=== PATIENT | female | born 1960 | race Two or more races ===

== ENCOUNTER → 2024-02-13 | Outpatient (CLI) | payer MEDICARE, MEDICAID, SELFPAY ==
[2024-02-13 13:50] LABS: Basophils % (Auto) 0 % (0-2.5); Eosinophils # (Auto) 0.2 Thou/mm3 (0.0-0.5); Eosinophils % (Auto) 4 % (0-10); Hematocrit 33.3 % (36.0-46.0); Hemoglobin 10.4 g/dL (12.0-16.0); Immature Granulocytes % (Auto) 1 % (0-0); Immature Granulocytes Auto 0.06 Thou/mm3 (0.00-0.00); Lymphocytes # (Auto) 1.2 Thou/mm3 (1.0-4.8); Lymphocytes % (Auto) 25 % (10-50); Mean Corpuscular HGB Conc 31.2 g/dl (31.0-37.0); Mean Corpuscular Hemoglobin 26.8 pg (25.0-35.0); Mean Corpuscular Volume 86 fL (80-100); Monocytes # (Auto) 0.3 Thou/mm3 (0.0-0.8); Monocytes % (Auto) 5 % (0-12); Neutrophils % (Auto) 64 % (37-80); Nucleated Red Blood Cell % 0 /100 WBC (0); Platelet Count 226 Thou/mm3 (140-440); RDW Standard Deviation 46.6 fL (36.4-46.3); Red Blood Count 3.88 Miln/mm3 (4.00-5.20); White Blood Count 4.6 Thou/mm3 (3.6-11.0)
[2024-02-13 14:01] LABS: Alanine Aminotransferase 14 U/L (10-49); Albumin, Serum 3.9 gm/dL (3.4-4.8); Albumin/Globulin Ratio 1.5 (1.2-2.2); Alkaline Phosphatase 104 U/L (46-116); Anion Gap 7 (7-16); Aspartate Amino Transferase < 10 U/L (0-34); BUN/Creatinine Ratio 16 Ratio (12-20); Bilirubin,Total 0.2 mg/dL (0.3-1.2); Blood Urea Nitrogen 30 mg/dL (9-23); Calcium 8.7 mg/dL (8.3-10.6); Calcium (Corrected) 8.8 mg/dL (8.5-10.1); Carbon Dioxide 23.2 mMol/L (20.0-31.0); Chloride 109 mMol/L (98-107); Creatinine (Component) 1.9 mg/dL (0.6-1.3); Globulin 2.6 gm/dL (2.3-3.5); Glucose 121 mg/dL (74-106); Osmolality,Calculated 284 (275-295); Potassium 4.8 mMol/L (3.4-5.1); Sodium 139 mMol/L (136-145); Total Protein 6.5 gm/dL (5.7-8.2); eGFR 30 See Note
== END | disposition home or self-care (01) ==
LOC: SCTO 12:35
PROVIDERS: PCP Internal Medicine; Referring Provider Internal Medicine Hematology & Oncology; Visit Provider Internal Medicine Hematology & Oncology
DX: C64.1 Malignant neoplasm of right kidney, except renal pelvis (principal); C78.01 Secondary malignant neoplasm of right lung
CPT/HCPCS: 36415; 80053; 85025

== ENCOUNTER 2024-02-15 11:16 | Outpatient (RCR) | payer MEDICARE, MEDICAID, SELFPAY ==
--- NOTE | 2024-02-18 22:14 | CTCFLWUP_ITS ---
Patient: GRICELDA MARQUES : 1960 Page 2 of 9 FOLLOW UP NOTE DATE OF SERVICE: 02/15/2024 NAME: GRICELDA MARQUES ACCOUNT: [id number] : 1960 AGE: 63 INTERVAL HISTORY: Patient has mild headaches. Patient says headache is present all the time and do not have any aggrav ating factors. Her mild nausea. Have not lost any weight. ONCOLOGY HISTORY: DIAGNOSIS: Malignant neoplasm of right kidney, except renal pelvis [ICD10] C64.1; Secondary malignant neoplasm o f right lung [ICD10] C78.01 DATE OF DIAGNOSIS: 09/13/2018 STAGE/TNM: Stage IV TREATMENT HISTORY: Care?Plan Start?Date Cycle Day Intent KEYTRUDA?200 01/21/2020 1 21 Palliative HISTORY OF PRESENT ILLNESS: Gricelda Marques is a 63-year-old ENG speaking female with history of diabetes since 1995, periph eral neuropathy as well as fibromyalgia has the following oncology history. July 2015: Patient had right radical nephrectomy, robotic inferior vena cava colectomy and right-side d retroperitoneal lymph node dissection. Pathology showed grade 2, clear cell renal cell carcinoma m easuring 7.5 x 5 x 4 cm in size. Margins were uninvolved by invasive carcinoma. Lymphovascular inva piper was not identified. It was staged as a pT3 disease. No regional lymph nodes were submitted in the pathology specimen. Renal artery, vein, ureter, perinephric resection margins and vena caval res ection margins are free of tumor. 09/13/2018: CT scan of the chest with IV contrast did not show any mediastinal adenopathy or pulmonary parenchymal nodules. 03/13/2019: CT scan of the chest, abdomen and pelvis with IV contrast? 05/15/2019: CT-guided biopsy of the right lower lobe pulmonary nodule was performed. 07/03/2019: Repeat CT scan of the chest without contrast was performed. 07/03/2019: Patient had repeat CT-guided percutaneous biopsy of the right lower lobe pulmonary nodule. July 2019: Patient was started on Sutent by Dr. Aaron of [place]. 09/03/2019: PET CT scan? 09/05/2019: Echocardiogram?LVEF 60 to 65%. 10/09/2019: CT scan of the abdomen and pelvis with contrast compared to previous CT scan of the abdomen and pelvis done on 03/27/2018. 12/21/2019: PET CT scan? 12/31/2019: Sutent discontinued. 01/21/2020: Patient is started on Keytruda and axitinib. 02/10/2020?02/23/2020: Patient was admitted to [facility] in [place] for a perianal abscess which was surgically lanced. Ms. Marques took the last dose of axitinib on 02/09/2020. 04/18/2020: PET CT scan? 05/13/2020: Patient received second dose of Keytruda and restarted axitinib 5 mg p.o. twice daily. 09/25/2020: PET CT scan? 06/16/2021: CT scan of the chest abdomen and pelvis with IV contrast 06/17/2021: Patient received last dose of pembrolizumab. 07/22/2021: Ms. Marques was getting pembrolizumab as well as axitinib. Pembrolizumab discontinued due to diarrhea lasting for about 2 weeks. After discontinuing the pembrolizumab diarrhea resolved. Catalina rrhea was thought to be secondary to colitis caused by pembrolizumab. 11/15/2021: CT scan of the chest abdomen and pelvis with IV contrast? November 20, 2021: Ms. Marques discontinued axitinib due to persistent diarrhea. Her diarrhea has impr marija since then. 12/14/2021: Pembrolizumab restarted. 03/17/2022: CT scan of the chest abdomen and pelvis with IV contrast? 09/13/2022: CT scan of the chest abdomen and pelvis with IV contrast 01/23/2023: CT scan of the chest abdomen and pelvis with IV contrast 02/09/2023: The patient received last dose of pembrolizumab. Pembrolizumab was discontinued and Ms. Sonja duncan was started on cabozantinib. 04/04/2023: CT scan of the chest abdomen and pelvis with IV contrast 05/16/2023 cabozantinib was decreased from 60 mg p.o. daily to 40 mg p.o. 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 06/22/2023: Cabozantinib 40 mg p.o. daily stopped due to stomatitis as well as ulcers in the feet. 07/18/2023T scan of the chest abdomen pelvis with contrast 08/26/2023: Ms. Marques decided to discontinue cabozantinib due to ulcers in the feet. She was taking cabozantinib 40 mg p.o. daily for 2 weeks followed by 1 week rest which she decided not to continue a ny longer. 10/13/2023: MRI of the brain without IV contrast 11/02/2023: CT scan of the chest abdomen and pelvis with IV contrast? 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 allopurinol - 100 mg Daily 2. atorvastatin - 20 mg 1 tab Daily 3. Basaglar KwikPen - Twice a Day 4. cabozantinib - 40 mg 1 tab Daily 5. carvedilol - 12.5 mg 1 tab Twice a Day 6. Cymbalta - 60 mg Daily 7. Farxiga - 5 mg 1 tab Daily 8. Lyrica - 100 mg Three times a day 9. Novolog - 10. Ozempic - 0.25 mg or 0.5 mg(2 mg/1.5 mL) As directed 11. Zofran - 4 mg 1 tab 2 tabs po twice a day prn nausea Medications Last Reconciled by Elizabeth Mcnulty MA on 02/15/2024 ALLERGIES: hydrocodone-acetaminophen; codeine sulfate REVIEW OF SYSTEMS: A complete 14-point review of systems was performed and is negative except as noted in interval histo ry. PHYSICAL EXAMINATION: VITAL SIGNS: Temperature?98, B/P?135/73, Oxygen?Saturation?97% Weight?252?lbs PAIN: 0 - No pain ECOG Performance Status: None GENERAL APPEARANCE: Appears well, in no apparent distress, appropriately interactive. HEENT: Normocephalic, no temporal wasting, normal conjunctiva, no scleral icterus, normal hearing, li ps without lesions, neck normal range of motion. CARDIOVASCULAR: Not assessed. PULMONARY: Normal respiratory effort, no respiratory distress or use of accessory muscles, speaking i n full sentences, no tachypnea. EXTREMITIES: No pedal edema or cyanosis. SKIN: Normal skin appearance. NEUROLOGIC: Alert and oriented x4. PSHYCHIATRIC: Appropriate affect, mood normal, behavior normal, intact thought and speech. LABORATORY DATA: I have personally reviewed and interpreted each of the patient?s relevant lab tests, abnormal finding s are below: Date 02/13/24 ??GLUCOSE,RANDOM?(mg/dL) 121?H ??BLOOD?UREA?NITROGEN?(mg/dL) 30?H ??CREATININE?(mg/dL) 1.90?H ??SODIUM?(mmol/L) 139 ??POTASSIUM?(mmol/L) 4.8 ??CHLORIDE?(mmol/L) 109?H ??CrCl?(CandG)?(ml/min) 38.47 ??AST/SGOT?(Unit/L) <?10 ??ALT/SGPT?(Unit/L) 14 ??ALKALINE?PHOSPHATASE?(Unit/L) 104 ??BILIRUBIN,?TOTAL?(mg/dL) 0.2?L ??PROTEIN?TOTAL?(gm/dl) 6.5 ??ALBUMIN,?SERUM?(gm/dl) 3.9 ??GLOBULIN?(gm/dl) 2.6 ??ALBUMIN/GLOBULIN?RATIO 1.5 ??CALCIUM,?SERUM?(mg/dL) 8.7 ??CALCIUM?SERUM?(CORRECTED)?(mg/dL) 8.8 ASSESSMENT/PLAN: 1. Metastatic clear cell carcinoma of the right kidney with biopsy-proven pulmonary metastatic diseas e. Progressed on Sutent and Keytruda CT scan of the chest abdomen and pelvis IV contrast (11/02/2023) is negative for metastatic disease. Cabozantinib discontinued on 09/03/2023 due to ulcers in the feet. Persistent headaches of 3 to [address] scan of the chest abdomen and was did not show any pulmonary lesions admitted as an adenopath y. It showed stable left para-aortic 23 mm lymph node. Will get staging imaging as well as MRI of the brain and start treatment if any evidence of recurrenc e 2. Diabetes with peripheral neuropathy as well as fibromyalgia-followed by PCP. ORDERS: CT scan chest abdomen pelvis with contrast to evaluate for metastatic disease MRI brain with contrast to evaluate metastatic disease CBC CMP RETURN TO CLINIC: 4 weeks BILLING AND COMPLIANCE: I reviewed external records from providers outside my specialty as summarized above. I spent a total of 50 minutes on this patient?s care on the day of their visit excluding time spent related to any bi lled procedures. This time includes time spent with the patient as well as time spent documenting in the medical record, reviewing patients records and tests, obtaining history, placing orders, communi cating with other healthcare professionals, counseling the patient, family or caregiver, and/or care coordination for the diagnoses above. Electronically Signed by: {Object.Sanct_ID*[email or web address]@M}, {Object.Sanct_ID*PnP.Suffix@U} D: {Object.Sanct_Date} T: {Object.Sanct_Time} CC: PCP: Anyi Lynch Referring: Anyi Lynch This document was completed utilizing speech recognition software. Grammatical errors, random word in sertions, pronoun errors, and incomplete sentences are an occasional consequence of this system due t o software limitations, ambient noise, and hardware issues. Any formal questions or concerns about th e content, text or information contained within the body of this dictation should be directly address ed to the provider for clarification.
== END 2024-03-08 23:59 | disposition home or self-care (01) ==
LOC: SCTC 11:16
PROVIDERS: PCP Internal Medicine; Referring Provider Internal Medicine; Visit Provider Internal Medicine Hematology & Oncology
DX: C64.1 Malignant neoplasm of right kidney, except renal pelvis (principal); C78.01 Secondary malignant neoplasm of right lung; R51.9 Headache, unspecified; R11.0 Nausea; E11.42 Type 2 diabetes mellitus with diabetic polyneuropathy; Z79.84 Long term (current) use of oral hypoglycemic drugs; Z79.4 Long term (current) use of insulin
CPT/HCPCS: 99212; G0463

== ENCOUNTER → 2024-03-27 | Outpatient (CLI) | payer MEDICARE, SELFPAY ==
[2024-03-27 13:54] LABS: Basophils % (Auto) 0 % (0-2.5); Eosinophils # (Auto) 0.2 Thou/mm3 (0.0-0.5); Eosinophils % (Auto) 2 % (0-10); Immature Granulocytes % (Auto) 1 % (0-0); Immature Granulocytes Auto 0.05 Thou/mm3 (0.00-0.00); Lymphocytes # (Auto) 1.6 Thou/mm3 (1.0-4.8); Lymphocytes % (Auto) 20 % (10-50); Mean Corpuscular HGB Conc 30.8 g/dl (31.0-37.0); Mean Corpuscular Hemoglobin 25.6 pg (25.0-35.0); Mean Corpuscular Volume 83 fL (80-100); Monocytes # (Auto) 0.6 Thou/mm3 (0.0-0.8); Monocytes % (Auto) 7 % (0-12); Neutrophils # (Auto) 5.5 Thou/mm3 (1.8-7.7); Neutrophils % (Auto) 69 % (37-80); Nucleated Red Blood Cell % 0 /100 WBC (0); Platelet Count 266 Thou/mm3 (140-440); Red Blood Count 4.68 Miln/mm3 (4.00-5.20)
[2024-03-27 14:40] LABS: Alanine Aminotransferase 14 U/L (10-49); Albumin/Globulin Ratio 1.3 (1.2-2.2); Alkaline Phosphatase 117 U/L (46-116); Anion Gap 11 (7-16); Aspartate Amino Transferase 13 U/L (0-34); BUN/Creatinine Ratio 12 Ratio (12-20); Bilirubin,Total 0.3 mg/dL (0.3-1.2); Blood Urea Nitrogen 21 mg/dL (9-23); Calcium 9.5 mg/dL (8.3-10.6); Calcium (Corrected) 9.5 mg/dL (8.5-10.1); Carbon Dioxide 20.9 mMol/L (20.0-31.0); Chloride 103 mMol/L (98-107); Creatinine (Component) 1.8 mg/dL (0.6-1.3); Globulin 3.1 gm/dL (2.3-3.5); Osmolality,Calculated 293 (275-295); Sodium 135 mMol/L (136-145); Total Protein 7.1 gm/dL (5.7-8.2); eGFR 32 See Note
[2024-03-27 15:17] LABS: Glucose 457 mg/dL (74-106)
== END | disposition home or self-care (01) ==
LOC: COPL 12:14 → SCTO 12:17
PROVIDERS: Referring Provider Internal Medicine Hematology & Oncology; Visit Provider Internal Medicine Hematology & Oncology
DX: C64.1 Malignant neoplasm of right kidney, except renal pelvis (principal); C78.01 Secondary malignant neoplasm of right lung
CPT/HCPCS: 36415; 80053; 85025

== ENCOUNTER → 2024-04-09 | Outpatient (CLI) | payer MEDICARE, MEDICAID, SELFPAY ==
--- NOTE | 2024-04-09 12:00 | XR_ITS ---
Examination: MRI brain with intravenous contrast TECHNIQUE: Axial sagittal coronal brain MRI images post intravenous administration 5 cc gadolinium INDICATIONS: Diagnosis headaches numbness in the extremities dizziness daily months, diagnosis malignant neoplasm kidney Exam date and time: 2024 1230 hours FINDINGS: Ventricles are normal in size and configuration No mass effect upon the ventricular system 6 mm focal area of enhancement in the right parietal lobe axial image 16 Fourth ventricle midline No tonsillar herniation IMPRESSION: Suspicious for subtle 6 mm focal area of enhancement in the right parietal lobe, recommend 3 month follow-up brain MRI post contrast
== END | disposition home or self-care (01) ==
PROVIDERS: PCP Internal Medicine; Referring Provider Internal Medicine Hematology & Oncology; Visit Provider Internal Medicine Hematology & Oncology
DX: G93.9 Disorder of brain, unspecified (principal); C64.1 Malignant neoplasm of right kidney, except renal pelvis; C78.01 Secondary malignant neoplasm of right lung
CPT/HCPCS: 70552; A9579

== ENCOUNTER → 2024-04-17 | Outpatient (CLI) | payer MEDICARE, MEDICAID, SELFPAY ==
--- NOTE | 2024-04-17 11:00 | XR_ITS ---
Examination: CT chest with intravenous contrast CT abdomen with intravenous contrast CT pelvis with intravenous contrast 2-D coronal and sagittal reconstructions Time of exam: April 17, 2024 1129 hrs. Comparison 11/02/2023 Indications: Diagnosis malignant neoplasm right kidney except renal pelvis, right kidney Carcinoma 2019 CTDI: vol (mGy) : 16.4 DLP: (mGycm): 1303 Technique: Multiple axial images of the chest, abdomen and pelvis with intravenous contrast, 3.0 mm slice thickness. Images obtained post intravenous injection Isovue 30 cc Isovue-300 2-D sagittal and coronal reconstructions. Low dose protocols were performed. One or more of the following dose reduction techniques were used; automated exposure control, adjustment of the mA and/or KV according to patient size, use of iterative reconstruction technique. Findings: Thoracic aortic calcification millimeters dilatation No pulmonary artery filling defects No paratracheal tracheobronchial or bronchopulmonary adenopathy 3 mm pulmonary nodule right Image 155 2 mm pulmonary nodule right lower lobe image 164 2 mm pulmonary nodule lingular segment image 184 6 mm pulmonary nodule left lower lobe image 264 Localized weakening of the upper abdominal wall Hepatomegaly, no focal liver lesions No adrenal mass Absent right kidney Significant scarring left kidney, mild left hydronephrosis, no solid left renal mass lesion No abdominal or pelvic lymphadenopathy No bowel obstruction No pelvic mass Contracted urinary bladder Moderate osteopenia Impression: Interval subcentimeter pulmonary nodules compared to the CT chest 11/02/2023, recommend decubitus film follow-up CT chest without intravenous contrast follow-up Suspicious for left urinary tract infection
== END | disposition home or self-care (01) ==
PROVIDERS: Referring Provider Internal Medicine Hematology & Oncology; Visit Provider Internal Medicine Hematology & Oncology
DX: R91.8 Other nonspecific abnormal finding of lung field (principal); C64.1 Malignant neoplasm of right kidney, except renal pelvis; C78.01 Secondary malignant neoplasm of right lung
CPT/HCPCS: 71260; 74177; A4649; Q9967

== ENCOUNTER 2024-04-18 10:44 | Outpatient (RCR) | payer MEDICARE, MEDICAID, SELFPAY ==
[2024-04-09 11:24] LABS: Alanine Aminotransferase 13 U/L (10-49); Albumin, Serum 3.7 gm/dL (3.4-4.8); Albumin/Globulin Ratio 1.4 (1.2-2.2); Alkaline Phosphatase 99 U/L (46-116); Anion Gap 6 (7-16); Aspartate Amino Transferase 12 U/L (0-34); BUN/Creatinine Ratio 16 Ratio (12-20); Bilirubin,Total 0.2 mg/dL (0.3-1.2); Blood Urea Nitrogen 25 mg/dL (9-23); Calcium 8.7 mg/dL (8.3-10.6); Calcium (Corrected) 8.9 mg/dL (8.5-10.1); Carbon Dioxide 26.3 mMol/L (20.0-31.0); Chloride 109 mMol/L (98-107); Creatinine (Component) 1.6 mg/dL (0.6-1.3); Globulin 2.7 gm/dL (2.3-3.5); Glucose 88 mg/dL (74-106); Osmolality,Calculated 284 (275-295); Potassium 5.1 mMol/L (3.4-5.1); Sodium 141 mMol/L (136-145); Total Protein 6.4 gm/dL (5.7-8.2); eGFR 36 See Note
--- NOTE | 2024-05-12 17:59 | CTCFLWUP_ITS ---
Patient: GRICELDA MARQUES : 1960 Page 10 of 12 FOLLOW UP NOTE DATE OF SERVICE: 04/18/2024 NAME: GRICELDA MARQUES ACCOUNT: [id number] : 1960 AGE: 63 INTERVAL HISTORY: Patient has mild headaches. Patient says headache is present all the time and do not have any aggravating factors. Her mild nausea. Have not lost any weight. ONCOLOGY HISTORY:?[facility] Oncology Hx? DIAGNOSIS: Malignant neoplasm of right kidney, except renal pelvis [ICD10] C64.1; Secondary malignant neoplasm of right lung [ICD10] C78.01 DATE OF DIAGNOSIS: 09/13/2018 STAGE/TNM: Stage IV TREATMENT HISTORY: Care?Plan Start?Date Cycle Day Intent KEYTRUDA?200 01/21/2020 1 21 Palliative HISTORY OF PRESENT ILLNESS: Gricelda Marques is a 63-year-old ENG speaking female with history of diabetes since 1995, peripheral neuropathy as well as fibromyalgia has the following oncology history. July 2015: Patient had right radical nephrectomy, robotic inferior vena cava colectomy and right-sided retroperitoneal lymph node dissection. Pathology showed grade 2, clear cell renal cell carcinoma measuring 7.5 x 5 x 4 cm in size. Margins were uninvolved by invasive carcinoma. Lymphovascular invasion was not identified. It was staged as a pT3 disease. No regional lymph nodes were submitted in the pathology specimen. Renal artery, vein, ureter, perinephric resection margins and vena caval resection margins are free of tumor. 09/13/2018: CT scan of the chest with IV contrast did not show any mediastinal adenopathy or pulmonary parenchymal nodules. 03/13/2019: CT scan of the chest, abdomen and pelvis with IV contrast? 05/15/2019: CT-guided biopsy of the right lower lobe pulmonary nodule was performed. 07/03/2019: Repeat CT scan of the chest without contrast was performed. 07/03/2019: Patient had repeat CT-guided percutaneous biopsy of the right lower lobe pulmonary nodule. July 2019: Patient was started on Sutent by Dr. Aaron of [place]. 09/03/2019: PET CT scan? 09/05/2019: Echocardiogram?LVEF 60 to 65%. 10/09/2019: CT scan of the abdomen and pelvis with contrast compared to previous CT scan of the abdomen and pelvis done on 03/27/2018. 12/21/2019: PET CT scan? 12/31/2019: Sutent discontinued. 01/21/2020: Patient is started on Keytruda and axitinib. 02/10/2020?02/23/2020: Patient was admitted to [facility] in [place] for a perianal abscess which was surgically lanced. Ms. Marques took the last dose of axitinib on 02/09/2020. 04/18/2020: PET CT scan? 05/13/2020: Patient received second dose of Keytruda and restarted axitinib 5 mg p.o. twice daily. 09/25/2020: PET CT scan? 06/16/2021: CT scan of the chest abdomen and pelvis with IV contrast 06/17/2021: Patient received last dose of pembrolizumab. 07/22/2021: Ms. Marques was getting pembrolizumab as well as axitinib. Pembrolizumab discontinued due to diarrhea lasting for about 2 weeks. After discontinuing the pembrolizumab diarrhea resolved. Diarrhea was thought to be secondary to colitis caused by pembrolizumab. 11/15/2021: CT scan of the chest abdomen and pelvis with IV contrast? November 20, 2021: Ms. Marques discontinued axitinib due to persistent diarrhea. Her diarrhea has improved since then. 12/14/2021: Pembrolizumab restarted. 03/17/2022: CT scan of the chest abdomen and pelvis with IV contrast? 09/13/2022: CT scan of the chest abdomen and pelvis with IV contrast 01/23/2023: CT scan of the chest abdomen and pelvis with IV contrast 02/09/2023: The patient received last dose of pembrolizumab. Pembrolizumab was discontinued and Ms. Marques was started on cabozantinib. 04/04/2023: CT scan of the chest abdomen and pelvis with IV contrast 05/16/2023 cabozantinib was decreased from 60 mg p.o. daily to 40 mg p.o. daily due to hypotension, cracking of the skin of the hands and feet as well as sores in the mouth. 06/22/2023: Cabozantinib 40 mg p.o. daily stopped due to stomatitis as well as ulcers in the feet. 07/18/2023T scan of the chest abdomen pelvis with contrast 08/26/2023: Ms. Marques decided to discontinue cabozantinib due to ulcers in the feet. She was taking cabozantinib 40 mg p.o. daily for 2 weeks followed by 1 week rest which she decided not to continue any longer. 10/13/2023: MRI of the brain without IV contrast 11/02/2023: CT scan of the chest abdomen and pelvis with IV contrast? OTHER MEDICAL HISTORY/CONDITIONS: FAMILY HISTORY: ?Clone Family Hx? 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 allopurinol - 100 mg Daily 2. atorvastatin - 20 mg 1 tab Daily 3. Basaglar KwikPen - Twice a Day 4. cabozantinib - 40 mg 1 tab Daily 5. carvedilol - 12.5 mg 1 tab Twice a Day 6. Cymbalta - 60 mg Daily 7. Farxiga - 5 mg 1 tab Daily 8. Lyrica - 100 mg Three times a day 9. Novolog - 10. Ozempic - 0.25 mg or 0.5 mg(2 mg/1.5 mL) As directed 11. Zofran - 4 mg 1 tab 2 tabs po twice a day prn nausea?Palabra Meds? Medications Last Reconciled by Johanna Nazario RN on 04/18/2024 ALLERGIES: hydrocodone-acetaminophen; codeine sulfate REVIEW OF SYSTEMS: A complete 14-point review of systems was performed and is negative except as noted in interval history. PHYSICAL EXAMINATION:?CloneBlock PE? VITAL SIGNS: Temperature?97.5, B/P?117/64, Oxygen?Saturation?95% Weight?262?lbs (Change?since?04/17/24:?3.8?lbs) PAIN: 4 - Moderate pain GENERAL APPEARANCE: Appears well, in no apparent distress, appropriately interactive. HEENT: Normocephalic, no temporal wasting, normal conjunctiva, no scleral icterus, normal hearing, lips without lesions, neck normal range of motion. CARDIOVASCULAR: Not assessed. PULMONARY: Normal respiratory effort, no respiratory distress or use of accessory muscles, speaking in full sentences, no tachypnea. EXTREMITIES: No pedal edema or cyanosis. SKIN: Normal skin appearance. NEUROLOGIC: Alert and oriented x4. PSHYCHIATRIC: Appropriate affect, mood normal, behavior normal, intact thought and speech. LABORATORY DATA: I have personally reviewed and interpreted each of the patient?s relevant lab tests, abnormal findings are below: Date 02/13/24 03/27/24 04/09/24 ??WHITE?BLOOD?COUNT?(Thou/mm3) 4.6 8.0 ? ??RED?BLOOD?COUNT?(Miln/mm3) 3.88?L 4.68 ? ??HEMOGLOBIN?(gm/dl) 10.4?L 12.0 ? ??HEMATOCRIT?(%) 33.3?L 39.0 ? ??PLATELET?COUNT?(Thou/mm3) 226 266 ? ??NEUTROPHILS?%,?AUTO?(%) 64 69 ? ??LYMPH?%,?AUTO?(%) 25 20 ? ??NEUTROPHILS,?AUTO?(Thou/mm3) 3.0 5.5 ? ??GLUCOSE,RANDOM?(mg/dL) ? 457?HH 88 ??BLOOD?UREA?NITROGEN?(mg/dL) ? 21 25?H ??CREATININE?(mg/dL) ? 1.80?H 1.60?H ??SODIUM?(mmol/L) ? 135?L 141 ??POTASSIUM?(mmol/L) ? 5.0 5.1 ??CHLORIDE?(mmol/L) ? 103 109?H ??CrCl?(CandG)?(ml/min) ? 40.51 45.70 ??AST/SGOT?(Unit/L) ? 13 12 ??ALT/SGPT?(Unit/L) ? 14 13 ??ALKALINE?PHOSPHATASE?(Unit/L) ? 117?H 99 ??BILIRUBIN,?TOTAL?(mg/dL) ? 0.3 0.2?L ??PROTEIN?TOTAL?(gm/dl) ? 7.1 6.4 ??ALBUMIN,?SERUM?(gm/dl) ? 4.0 3.7 ??GLOBULIN?(gm/dl) ? 3.1 2.7 ??ALBUMIN/GLOBULIN?RATIO ? 1.3 1.4 ??CALCIUM,?SERUM?(mg/dL) ? 9.5 8.7 ??CALCIUM?SERUM?(CORRECTED)?(mg/dL) ? 9.5 8.9 ASSESSMENT/PLAN:?Ivanna Main Assessment/Plan? 1. Metastatic clear cell carcinoma of the right kidney with biopsy-proven pulmonary metastatic disease. Progressed on Sutent and Keytruda CT scan of the chest abdomen and pelvis IV contrast (11/02/2023) is negative for metastatic disease. Cabozantinib discontinued on 09/03/2023 due to ulcers in the feet. Persistent headaches of 3 to [address] scan of the chest abdomen and was did not show any pulmonary lesions admitted as an adenopathy. It showed stable left para-aortic 23 mm lymph node. 04/09/2024 MRI of the brain reviewed and shows 6 mm provide have not suspicious and recommendation is to follow-up with repeat MRI in [address] scan reviewed and shows subcentimeter pulmonary nodules compared to CT chest 11/02/2023 and recommendation is to follow-up with another CT chest Discussed with the patient and will repeat brain MRI Will also order CT scan Will go for [place] testing to see if any residual tumor The patient have labs of cancer we will restart treatment with the Nivo and ipi 2. Diabetes with peripheral neuropathy as well as fibromyalgia-followed by PCP. ORDERS: Order # Description [id number] MRI + With W/O Contrast + Brain [id number] CT Scan + With W/O Contrast [id number] MD Follow Up [id number] Scan + Chest + With Contrast RETURN TO CLINIC: 2 months with imaging BILLING AND COMPLIANCE: I reviewed external records from providers outside my specialty as summarized above. I spent a total of 50 minutes on this patient?s care on the day of their visit excluding time spent related to any billed procedures. This time includes time spent with the patient as well as time spent documenting in the medical record, reviewing patients records and tests, obtaining history, placing orders, communicating with other healthcare professionals, counseling the patient, family or caregiver, and/or care coordination for the diagnoses above. Electronically Signed by: Bret Main MD T: 5:56 PM CC: PCP: Bret Main Referring: Bret Main This document was completed utilizing speech recognition software. Grammatical errors, random word insertions, pronoun errors, and incomplete sentences are an occasional consequence of this system due to software limitations, ambient noise, and hardware issues. Any formal questions or concerns about the content, text or information contained within the body of this dictation should be directly addressed to the provider for clarification.
== END 2024-05-06 23:59 | disposition home or self-care (01) ==
LOC: SCTC 10:44
PROVIDERS: PCP Internal Medicine; Referring Provider Internal Medicine Hematology & Oncology; Visit Provider Internal Medicine Hematology & Oncology
DX: C64.1 Malignant neoplasm of right kidney, except renal pelvis (principal); C78.01 Secondary malignant neoplasm of right lung; R51.9 Headache, unspecified; R11.0 Nausea; E11.42 Type 2 diabetes mellitus with diabetic polyneuropathy; M79.7 Fibromyalgia; R91.8 Other nonspecific abnormal finding of lung field
CPT/HCPCS: 70552; 71260; 74177; 80053; 96360; 96361; 99212; A4649; A9579; J7030; Q9967; G0463

== ENCOUNTER → 2024-05-14 | Outpatient (CLI) | payer MEDICARE, MEDICAID, SELFPAY ==
[2024-05-14 13:51] LABS: Alanine Aminotransferase 15 U/L (10-49); Albumin, Serum 4.3 gm/dL (3.4-4.8); Albumin/Globulin Ratio 1.3 (1.2-2.2); Alkaline Phosphatase 134 U/L (46-116); Anion Gap 8 (7-16); Aspartate Amino Transferase 13 U/L (0-34); BUN/Creatinine Ratio 15 Ratio (12-20); Bilirubin,Total 0.3 mg/dL (0.3-1.2); Blood Urea Nitrogen 29 mg/dL (9-23); Calcium 9.5 mg/dL (8.3-10.6); Calcium (Corrected) 9.5 mg/dL (8.5-10.1); Chloride 107 mMol/L (98-107); Globulin 3.2 gm/dL (2.3-3.5); Glucose 136 mg/dL (74-106); Osmolality,Calculated 285 (275-295); Potassium 5.4 mMol/L (3.4-5.1); Sodium 139 mMol/L (136-145); Total Protein 7.5 gm/dL (5.7-8.2); eGFR 28 See Note
== END | disposition home or self-care (01) ==
LOC: SCTO 12:23
PROVIDERS: PCP Internal Medicine; Referring Provider Internal Medicine Hematology & Oncology; Visit Provider Internal Medicine Hematology & Oncology
DX: C64.1 Malignant neoplasm of right kidney, except renal pelvis (principal); C78.01 Secondary malignant neoplasm of right lung
CPT/HCPCS: 36415; 80053

== ENCOUNTER → 2024-05-16 | Outpatient (CLI) | payer MEDICARE, MEDICAID, SELFPAY ==
--- NOTE | 2024-05-16 08:30 | XR_ITS ---
Examination: MRI of brain without intravenous contrast. MRI brain with intravenous contrast. Date and time of exam:May 17, 2019 5039 hrs. Comparison April 09, 2024 Indications: Diagnosis malignant neoplasm right kidney Renal pelvis, secondary malignant neoplasm right lung, brain MRI April 09, 2024 suspicious for 6 mm enhancement right posterior parietal lobe, patient states headache dizziness 2 months numbness and paresthesias in the extremities Technique: Multiple axial and sagittal images of the brain to been obtained. Siemens high-resolution 1.52 Oksana short bore scanner utilized. Sagittal sections, T1 weighted images, TR 500, TE 14, are performed. Axial sections proton-density and T2-weighted images have been obtained. Inversion recovery axial images, TR 9260, TE 111, TR 2500. Diffusion weighted images, axial sections, TR 4800, TE 128, B value 1000. Axial sections, ADC map, TR 4800, TE 128. Axial and coronal images were also obtained post 5 cc gadolinium administered intravenously. Findings:: Enlargement of the sella turcica is not present. The optic chiasm and infundibular stalk are not remarkable. There is no localized enlargement of the medulla or robert. Fourth ventricle and cerebellar tonsils appear normal in position. No subacute area of hemorrhage density is seen. Significant left maxillary sinus disease as well as chronic ethmoid frontal and sphenoid sinus disease Fourth ventricle is midline. Mass in the cerebellopontine angle region is not evident. 7th and 8th nerve complexes exhibit symmetry Globes are symmetrical Orbital musculature including medial lateral rectus muscles do not exhibit abnormality Increased white matter signal is mild Effacement of the cortical sulcal markings is not identified. Mass effect upon the ventricular system is not identified. Diffusion-weighted images demonstrate no focus of restricted diffusion Contrast images demonstrate no abnormal enhancing cerebellar or cerebral lesions Impression: No abnormal enhancing cerebellar or cerebral lesions on the current study
== END | disposition home or self-care (01) ==
LOC: SMRI 08:04
PROVIDERS: Referring Provider Internal Medicine Hematology & Oncology; Visit Provider Internal Medicine Hematology & Oncology
DX: C64.1 Malignant neoplasm of right kidney, except renal pelvis (principal); C78.01 Secondary malignant neoplasm of right lung
CPT/HCPCS: 70553; A9579

== ENCOUNTER → 2024-06-25 | Outpatient (CLI) | payer MEDICARE, MEDICAID, SELFPAY ==
[2024-06-25 08:45] LABS: Misc Send Out* See Sep Rpt
== END | disposition home or self-care (01) ==
PROVIDERS: PCP Internal Medicine; Referring Provider Internal Medicine Hematology & Oncology; Visit Provider Internal Medicine Hematology & Oncology
DX: C64.1 Malignant neoplasm of right kidney, except renal pelvis (principal); C78.01 Secondary malignant neoplasm of right lung

== ENCOUNTER → 2024-07-25 | Outpatient (CLI) | payer MEDICARE, MEDICAID, SELFPAY ==
[2024-07-25 15:47] LABS: Basophils % (Auto) 1 % (0-2.5); Eosinophils # (Auto) 0.2 Thou/mm3 (0.0-0.5); Eosinophils % (Auto) 4 % (0-10); Hematocrit 32.1 % (36.0-46.0); Hemoglobin 9.7 g/dL (12.0-16.0); Immature Granulocytes % (Auto) 0 % (0-0); Immature Granulocytes Auto 0.02 Thou/mm3 (0.00-0.00); Lymphocytes # (Auto) 1.6 Thou/mm3 (1.0-4.8); Lymphocytes % (Auto) 25 % (10-50); Mean Corpuscular HGB Conc 30.2 g/dl (31.0-37.0); Mean Corpuscular Hemoglobin 25.8 pg (25.0-35.0); Mean Corpuscular Volume 85 fL (80-100); Monocytes # (Auto) 0.5 Thou/mm3 (0.0-0.8); Monocytes % (Auto) 8 % (0-12); Neutrophils % (Auto) 63 % (37-80); Nucleated Red Blood Cell % 0 /100 WBC (0); Platelet Count 173 Thou/mm3 (140-440); RDW Standard Deviation 51.7 fL (36.4-46.3); Red Blood Count 3.76 Miln/mm3 (4.00-5.20); White Blood Count 6.3 Thou/mm3 (3.6-11.0)
[2024-07-25 16:10] LABS: Alanine Aminotransferase 7 U/L (10-49); Albumin, Serum 4.3 gm/dL (3.4-4.8); Albumin/Globulin Ratio 1.6 (1.2-2.2); Alkaline Phosphatase 92 U/L (46-116); Anion Gap 11 (7-16); Aspartate Amino Transferase 13 U/L (0-34); BUN/Creatinine Ratio 14 Ratio (12-20); Bilirubin,Total 0.3 mg/dL (0.3-1.2); Blood Urea Nitrogen 43 mg/dL (9-23); Calcium 9.3 mg/dL (8.3-10.6); Calcium (Corrected) 9.3 mg/dL (8.5-10.1); Carbon Dioxide 20.7 mMol/L (20.0-31.0); Chloride 114 mMol/L (98-107); Creatinine (Component) 3.1 mg/dL (0.6-1.3); Globulin 2.7 gm/dL (2.3-3.5); Glucose 130 mg/dL (74-106); Osmolality,Calculated 303 (275-295); Potassium 5.1 mMol/L (3.4-5.1); Sodium 146 mMol/L (136-145); eGFR 16 See Note
== END | disposition home or self-care (01) ==
LOC: SCTO 13:46
PROVIDERS: PCP Internal Medicine; Referring Provider Internal Medicine Hematology & Oncology; Visit Provider Internal Medicine Hematology & Oncology
DX: C64.1 Malignant neoplasm of right kidney, except renal pelvis (principal); C78.01 Secondary malignant neoplasm of right lung
CPT/HCPCS: 36415; 80053; 85025

== ENCOUNTER 2024-08-12 11:40 | Outpatient (RCR) | payer MEDICARE, MEDICAID, SELFPAY ==
--- NOTE | 2024-08-25 17:01 | CTCFLWUP_ITS ---
Patient: GRICELDA MARQUES : 1960 Page 2 of 3 FOLLOW UP NOTE DATE OF SERVICE: 08/12/2024 NAME: GRICELDA MARQUES ACCOUNT: [id number] : 1960 AGE: 64 INTERVAL HISTORY: Shelli, a patient with stage 4 kidney cancer, presented for follow-up after multiple hospitalizations. History included failed treatments with Sutent, pembrolizumab, Inlyta, and cabozantinib due to intolerance. 05/16/24 brain MRI stable . Netera test was positive at 1.90. The patient is on dialysis with a Pritesh port. Treatment plan included initiating nivolumab/ipilimumab immunotherapy, as patient is very reluctant restarting low-dose Inlyta, continuing brain imaging, and using the existing dialysis port for treatment administration. ONCOLOGY HISTORY: DIAGNOSIS: Malignant neoplasm of right kidney, except renal pelvis [ICD10] C64.1; Secondary malignant neoplasm of right lung [ICD10] C78.01 DATE OF DIAGNOSIS: 09/13/2018 STAGE/TNM: Stage IV TREATMENT HISTORY: Care?Plan Start?Date Cycle Day Intent Nivolumab?and?ipilumumab?1 08/12/2024 1 21 Palliative KEYTRUDA?200 01/21/2020 1 21 Palliative HISTORY OF PRESENT ILLNESS: Gricelda Marques is a 64-year-old ENG speaking female with history of diabetes since 1995, peripheral neuropathy as well as fibromyalgia has the following oncology history. July 2015: Patient had right radical nephrectomy, robotic inferior vena cava colectomy and right-sided retroperitoneal lymph node dissection. Pathology showed grade 2, clear cell renal cell carcinoma measuring 7.5 x 5 x 4 cm in size. Margins were uninvolved by invasive carcinoma. Lymphovascular invasion was not identified. It was staged as a pT3 disease. No regional lymph nodes were submitted in the pathology specimen. Renal artery, vein, ureter, perinephric resection margins and vena caval resection margins are free of tumor. 09/13/2018: CT scan of the chest with IV contrast did not show any mediastinal adenopathy or pulmonary parenchymal nodules. 03/13/2019: CT scan of the chest, abdomen and pelvis with IV contrast? 05/15/2019: CT-guided biopsy of the right lower lobe pulmonary nodule was performed. 07/03/2019: Repeat CT scan of the chest without contrast was performed. 07/03/2019: Patient had repeat CT-guided percutaneous biopsy of the right lower lobe pulmonary nodule. July 2019: Patient was started on Sutent by Dr. Aaron of [place]. 09/03/2019: PET CT scan? 09/05/2019: Echocardiogram?LVEF 60 to 65%. 10/09/2019: CT scan of the abdomen and pelvis with contrast compared to previous CT scan of the abdomen and pelvis done on 03/27/2018. 12/21/2019: PET CT scan? 12/31/2019: Sutent discontinued. 01/21/2020: Patient is started on Keytruda and axitinib. 02/10/2020?02/23/2020: Patient was admitted to [facility] in [place] for a perianal abscess which was surgically lanced. Ms. Marques took the last dose of axitinib on 02/09/2020. 04/18/2020: PET CT scan? 05/13/2020: Patient received second dose of Keytruda and restarted axitinib 5 mg p.o. twice daily. 09/25/2020: PET CT scan? 06/16/2021: CT scan of the chest abdomen and pelvis with IV contrast 06/17/2021: Patient received last dose of pembrolizumab. 07/22/2021: Ms. Marques was getting pembrolizumab as well as axitinib. Pembrolizumab discontinued due to diarrhea lasting for about 2 weeks. After discontinuing the pembrolizumab diarrhea resolved. Diarrhea was thought to be secondary to colitis caused by pembrolizumab. 11/15/2021: CT scan of the chest abdomen and pelvis with IV contrast? November 20, 2021: Ms. Marques discontinued axitinib due to persistent diarrhea. Her diarrhea has improved since then. 12/14/2021: Pembrolizumab restarted. 03/17/2022: CT scan of the chest abdomen and pelvis with IV contrast? 09/13/2022: CT scan of the chest abdomen and pelvis with IV contrast 01/23/2023: CT scan of the chest abdomen and pelvis with IV contrast 02/09/2023: The patient received last dose of pembrolizumab. Pembrolizumab was discontinued and Ms. Marques was started on cabozantinib. 04/04/2023: CT scan of the chest abdomen and pelvis with IV contrast 05/16/2023 cabozantinib was decreased from 60 mg p.o. daily to 40 mg p.o. daily due to hypotension, cracking of the skin of the hands and feet as well as sores in the mouth. 06/22/2023: Cabozantinib 40 mg p.o. daily stopped due to stomatitis as well as ulcers in the feet. 07/18/2023T scan of the chest abdomen pelvis with contrast 08/26/2023: Ms. Marques decided to discontinue cabozantinib due to ulcers in the feet. She was taking cabozantinib 40 mg p.o. daily for 2 weeks followed by 1 week rest which she decided not to continue any longer. 10/13/2023: MRI of the brain without IV contrast 11/02/2023: CT scan of the chest abdomen and pelvis with IV contrast? 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 allopurinol - 100 mg Daily 2. atorvastatin - 20 mg 1 tab Daily 3. Basaglar KwikPen - Twice a Day 4. carvedilol - 12.5 mg 1 tab Twice a Day 5. Cymbalta - 60 mg Daily 6. Lyrica - 100 mg 1 Capsule Every day before sleep 7. Novolog - 8. Ozempic - 0.25 mg or 0.5 mg(2 mg/1.5 mL) As directed 9. Zofran - 4 mg 1 tab 2 tabs po twice a day prn nausea Medications Last Reconciled by Elizabeth Mcnulty MA on 08/12/2024 ALLERGIES: hydrocodone-acetaminophen; codeine sulfate REVIEW OF SYSTEMS: A complete 14-point review of systems was performed and is negative except as noted in interval history. PHYSICAL EXAMINATION: VITAL SIGNS: Temperature?98, B/P?151/74, Oxygen?Saturation?97% Weight?239?lbs PAIN: 0 - No pain ECOG Performance Status: 0 - Asymptomatic and fully active GENERAL APPEARANCE: Appears well, in no apparent distress, appropriately interactive. HEENT: Normocephalic, no temporal wasting, normal conjunctiva, no scleral icterus, normal hearing, lips without lesions, neck normal range of motion. CARDIOVASCULAR: Not assessed. PULMONARY: Normal respiratory effort, no respiratory distress or use of accessory muscles, speaking in full sentences, no tachypnea. EXTREMITIES: No pedal edema or cyanosis. SKIN: Normal skin appearance. NEUROLOGIC: Alert and oriented x4. PSHYCHIATRIC: Appropriate affect, mood normal, behavior normal, intact thought and speech. LABORATORY DATA: I have personally reviewed and interpreted each of the patient?s relevant lab tests, abnormal findings are below: Date 04/09/24 05/14/24 07/25/24 ??WHITE?BLOOD?COUNT?(Thou/mm3) ? ? 6.3 ??RED?BLOOD?COUNT?(Miln/mm3) ? ? 3.76?L ??HEMOGLOBIN?(gm/dl) ? ? 9.7?L ??HEMATOCRIT?(%) ? ? 32.1?L ??PLATELET?COUNT?(Thou/mm3) ? ? 173 ??NEUTROPHILS?%,?AUTO?(%) ? ? 63 ??LYMPH?%,?AUTO?(%) ? ? 25 ??NEUTROPHILS,?AUTO?(Thou/mm3) ? ? 4.0 ??GLUCOSE,RANDOM?(mg/dL) 88 136?H 130?H ??BLOOD?UREA?NITROGEN?(mg/dL) 25?H 29?H 43?H ??CREATININE?(mg/dL) 1.60?H 2.00?H 3.10?H ??SODIUM?(mmol/L) 141 139 146?H ??POTASSIUM?(mmol/L) 5.1 5.4?H 5.1 ??CHLORIDE?(mmol/L) 109?H 107 114?H ??CrCl?(CandG)?(ml/min) 45.70 37.30 23.76 ??AST/SGOT?(Unit/L) 12 13 13 ??ALT/SGPT?(Unit/L) 13 15 7?L ??ALKALINE?PHOSPHATASE?(Unit/L) 99 134?H 92 ??BILIRUBIN,?TOTAL?(mg/dL) 0.2?L 0.3 0.3 ??PROTEIN?TOTAL?(gm/dl) 6.4 7.5 7.0 ??ALBUMIN,?SERUM?(gm/dl) 3.7 4.3 4.3 ??GLOBULIN?(gm/dl) 2.7 3.2 2.7 ??ALBUMIN/GLOBULIN?RATIO 1.4 1.3 1.6 ??CALCIUM,?SERUM?(mg/dL) 8.7 9.5 9.3 ??CALCIUM?SERUM?(CORRECTED)?(mg/dL) 8.9 9.5 9.3 ASSESSMENT/PLAN: 1. Metastatic clear cell carcinoma of the right kidney with biopsy-proven pulmonary metastatic disease. Progressed on Sutent and Keytruda CT scan of the chest abdomen and pelvis IV contrast (11/02/2023) is negative for metastatic disease. Cabozantinib discontinued on 09/03/2023 due to ulcers in the feet. 04/09/2024 MRI of the brain reviewed and shows 6 mm lesion 05/16/[address] scan reviewed and shows subcentimeter pulmonary nodules compared to CT chest 11/02/2023 Patient had walter which showed persistant tumor Patient agreed to starting therapy with nivo/ipi immunotherapy The patient have labs of cancer we will restart treatment with the Nivo and ipi Patien is scheculed to get ct scan with contrast Patient is on dialysis Chest x ray showed cardiomegaly Will get echo 2. Diabetes with peripheral neuropathy as well as fibromyalgia-followed by PCP. RETURN TO CLINIC: I reviewed the diagnosis, prognosis, and recommended treatment/procedure options with the patient (and/or their legal product support representative), including the potential benefits, risks, side effects and alternative therapies. We also discussed the option of no treatment and the possibility of clinical trial participation, if applicable. All questions were addressed, and they demonstrated understanding. They provided informed consent to proceed with the proposed plan of care. BILLING AND COMPLIANCE: I reviewed external records from providers outside my specialty as summarized above. I spent a total of 50 minutes on this patient?s care on the day of their visit excluding time spent related to any billed procedures. This time includes time spent with the patient as well as time spent documenting in the medical record, reviewing patients records and tests, obtaining history, placing orders, communicating with other healthcare professionals, counseling the patient, family or caregiver, and/or care coordination for the diagnoses above. Electronically Signed by: Bret Main MD T: 4:58 PM CC: PCP: Anyi Lynch Referring: Anyi Lynch This document was completed utilizing speech recognition software. Grammatical errors, random word insertions, pronoun errors, and incomplete sentences are an occasional consequence of this system due to software limitations, ambient noise, and hardware issues. Any formal questions or concerns about the content, text or information contained within the body of this dictation should be directly addressed to the provider for clarification.
== END 2024-09-05 23:59 | disposition home or self-care (01) ==
LOC: SCTC 11:40
PROVIDERS: PCP Internal Medicine; Referring Provider Internal Medicine; Visit Provider Internal Medicine Hematology & Oncology
DX: C64.1 Malignant neoplasm of right kidney, except renal pelvis (principal); C78.01 Secondary malignant neoplasm of right lung; I51.7 Cardiomegaly; E11.42 Type 2 diabetes mellitus with diabetic polyneuropathy; M79.7 Fibromyalgia; R91.8 Other nonspecific abnormal finding of lung field; G93.89 Other specified disorders of brain
CPT/HCPCS: 99212; G0463

== ENCOUNTER → 2024-09-22 | Outpatient (CLI) | payer MEDICARE, MEDICAID, SELFPAY ==
--- NOTE | 2024-09-22 12:30 | ECHO_ITS ---
Transthoracic Echo Report Ht (in): 64 Wt (lb): 235 Exam Location: Echo Lab Status: Preadmit Auto Slip Cover Installer: Angela Gray Indications: Procedure Performed: BP: / HR: MEASUREMENTS (Male / Female) Normal Values 2D ECHO LV Diastolic Diameter PLAX 4.9 cm 4.2 - 5.9 / 3.9 - 5.3 cm LV Systolic Diameter PLAX 2.9 cm IVS Diastolic Thickness 1.1 cm 0.6 - 1.0 / 0.6 - 0.9 cm LVPW Diastolic Thickness 1.1 cm 0.6 - 1.0 / 0.6 - 0.9 cm LV Relative Wall Thickness 0.4 LVOT Diameter 2.0 cm LA Systolic Diameter LX 4.0 cm 3.0 - 4.0 / 2.7 - 3.8 cm LV Ejection Fraction MOD BP 48.0 % >= 55 % LV Ejection Fraction MOD 4C 55.3 % LV Ejection Fraction 4C AL 56.4 % LV Ejection Fraction MOD 2C 45.5 % LV Ejection Fraction 2C AL 50.2 % M-MODE Aortic Root Diameter MM 2.0 cm LA Systolic Diameter MM 4.6 cm LA Ao Ratio MM 2.3 AV Cusp Separation MM 1.7 cm DOPPLER AV Peak Velocity 198.0 cm/s AV Peak Gradient 15.7 mmHg AV Mean Gradient 7.0 mmHg AV Velocity Time Integral 44.1 cm LVOT Peak Velocity 85.7 cm/s LVOT Peak Gradient 2.9 mmHg LVOT Velocity Time Integral 22.3 cm AV Area Cont Eq vti 1.6 cm? AV Area Cont Eq pk 1.4 cm? MV Area PHT 3.2 cm? Mitral E Point Velocity 90.0 cm/s Mitral A Point Velocity 121.0 cm/s Mitral E to A Ratio 0.7 TR Peak Velocity 204.0 cm/s TR Peak Gradient 16.6 mmHg PV Peak Velocity 271.0 cm/s PV Peak Gradient 29.4 mmHg FINDINGS Left Ventricle Normal left ventricular size, wall thickness, systolic function with no obvious regional wall motion abnormalities. The ejection fraction is visually estimated at 55-60 %. There is grade I diastolic dysfunction of the left ventricle (impaired relaxation pattern). Right Ventricle The right ventricle is normal in size and systolic function. Left Atrium The left atrium is normal by two-dimensional, color flow and Doppler imaging with no structural abnormalities, no thrombus formation present. Right Atrium The right atrium is normal by two-dimensional imaging, color flow and Doppler imaging with no structural abnormalities, no thrombus formation present. Atrial Septum The interatrial septum appears normal with no evidence of a shunt. Aorta The aorta is normal by two-dimensional, color flow and Doppler interrogation. Mitral Valve The mitral valve is normal by two-dimensional, color flow and Doppler interrogation. Trace MR. Aortic Valve Aortic valve sclerosis. Tricuspid Valve The tricuspid valve is normal by two-dimensional, color flow and Doppler interrogation. Trace TR. Pulmonic Valve Mild pulmonic valve stenosis, peak velocity 2.71 m/s. Vessels Inferior vena cava not well visualized. Pericardium The pericardium is normal by two-dimensional imaging. There is no significant pericardial effusion. CONCLUSIONS Indication: Malignant neoplasm of right kidney, except renal pelvis The transthoracic study is normal by two-dimensional, color flow imaging and Doppler interrogation. Normal left ventricular size and function. Estimated EF at 55-60 %. There is grade I diastolic dysfunction. The RV is normal in size and systolic function. No wall motion abnormalities Mary Fowler (Electronically Signed) Final Date: 22 September 2024 17:33
== END | disposition home or self-care (01) ==
LOC: SDIM 12:01
PROVIDERS: PCP Internal Medicine; Referring Provider Internal Medicine Hematology & Oncology; Visit Provider Internal Medicine Hematology & Oncology
DX: I50.30 Unspecified diastolic (congestive) heart failure (principal); C64.1 Malignant neoplasm of right kidney, except renal pelvis
CPT/HCPCS: 93306

== ENCOUNTER → 2024-10-10 | Outpatient (CLI) | payer MEDICARE, MEDICAID, SELFPAY ==
[2024-10-10 12:03] LABS: Basophils # (Auto) 0.0 Thou/mm3 (0.0-0.2); Basophils % (Auto) 1 % (0-2.5); Eosinophils # (Auto) 0.2 Thou/mm3 (0.0-0.5); Eosinophils % (Auto) 5 % (0-10); Hematocrit 23.2 % (36.0-46.0); Immature Granulocytes Auto 0.02 Thou/mm3 (0.00-0.00); Lymphocytes # (Auto) 1.5 Thou/mm3 (1.0-4.8); Lymphocytes % (Auto) 31 % (10-50); Mean Corpuscular HGB Conc 29.7 g/dl (31.0-37.0); Mean Corpuscular Hemoglobin 26.4 pg (25.0-35.0); Mean Corpuscular Volume 89 fL (80-100); Monocytes # (Auto) 0.3 Thou/mm3 (0.0-0.8); Monocytes % (Auto) 7 % (0-12); Neutrophils # (Auto) 2.7 Thou/mm3 (1.8-7.7); Neutrophils % (Auto) 56 % (37-80); Nucleated Red Blood Cell # 0.00 Thou/mm3 (0.00-0.00); Nucleated Red Blood Cell % 0 /100 WBC (0); Platelet Count 181 Thou/mm3 (140-440); RDW Standard Deviation 58.5 fL (36.4-46.3); Red Blood Count 2.61 Miln/mm3 (4.00-5.20); White Blood Count 4.9 Thou/mm3 (3.6-11.0)
[2024-10-10 12:08] LABS: Hemoglobin 6.9 g/dL (12.0-16.0)
[2024-10-10 12:31] LABS: Alanine Aminotransferase 7 U/L (10-49); Albumin, Serum 4.4 gm/dL (3.4-4.8); Albumin/Globulin Ratio 1.5 (1.2-2.2); Alkaline Phosphatase 92 U/L (46-116); Anion Gap 14 (7-16); Aspartate Amino Transferase 21 U/L (0-34); BUN/Creatinine Ratio 5 Ratio (12-20); Bilirubin,Total 0.2 mg/dL (0.3-1.2); Blood Urea Nitrogen 37 mg/dL (9-23); Calcium 9.6 mg/dL (8.3-10.6); Calcium (Corrected) 9.6 mg/dL (8.5-10.1); Carbon Dioxide 29.7 mMol/L (20.0-31.0); Chloride 100 mMol/L (98-107); Creatinine (Component) 8.2 mg/dL (0.6-1.3); Globulin 2.9 gm/dL (2.3-3.5); Glucose 129 mg/dL (74-106); Osmolality,Calculated 297 (275-295); Potassium 4.7 mMol/L (3.4-5.1); Sodium 144 mMol/L (136-145); Total Protein 7.3 gm/dL (5.7-8.2); eGFR 5 See Note
== END | disposition home or self-care (01) ==
LOC: SCTO 10:30
PROVIDERS: PCP Internal Medicine; Referring Provider Internal Medicine Hematology & Oncology; Visit Provider Internal Medicine Hematology & Oncology
DX: C64.1 Malignant neoplasm of right kidney, except renal pelvis (principal); C78.01 Secondary malignant neoplasm of right lung
CPT/HCPCS: 36415; 80053; 85025

== ENCOUNTER → 2024-10-15 | Outpatient (CLI) | payer MEDICARE, MEDICAID, SELFPAY ==
--- NOTE | 2024-10-15 10:30 | XR_ITS ---
Examination: CT chest with intravenous contrast 2-D sagittal and coronal reconstructions Exam date and time: October 15, 2024 1106 hours, comparison CT chest abdomen pelvis April 17, 2024 INDICATIONS: Diagnosis malignant neoplasm right kidney except renal pelvis, subcentimeter pulmonary nodules on CT chest April 17, 2024, restaging CTDI:vol (mGy) 16.19 DLP: (mGycm) 690 Technique: Multiple axial sections of the thorax have been obtained. Sections have been obtained, 3 mm slice thickness. Mediastinal and lung density settings have been obtained. Intravenous contrast administered, 30 cc [id number]. 2-D sagittal, coronal images obtained. Low dose protocols were performed. One or more of the following dose reduction techniques were used; automated exposure control, adjustment of the mA and/or KV according to patient size, use of iterative reconstruction technique. Findings: 4 mm right thyroid nodule 10 mm high right paratracheal lymph node No thoracic aortic aneurysm dilatation or dissection Enlargement main pulmonary artery segment 36 mm, no pulmonary artery filling defects Interval mass adjacent to the left ventricle, axial image 79, measuring 26 mm 2 mm pulmonary nodule right lower lobe 12 mm pulmonary nodule left upper lobe No pneumonia or pulmonary edema Mild left pleural disease Minimal pericardial effusion 15 mm solid appearing mass in the upper right lobe of the liver Liver is enlarged, partially visualized Spleen is not enlarged Mild edema about the tail the pancreas Enlarging irregular mass in the medial aspect of the left kidney, poorly defined, involving the renal collecting system, measuring at least 8.5 x 5.7 cm, 12 mm, 8mm lymph nodes medial to this mass IMPRESSION: Interval 10 mm high right paratracheal lymph node Pulmonary artery hypertension Interval 26 mm mass adjacent to the left ventricle Progression of pulmonary nodular metastatic disease as above. Interval 15 mm solid mass upper right lobe of the liver, recommend MRI abdomen liver follow-up pre and postcontrast Progression of tumor mass ill-defined in the medial right kidney invading the renal pelvis, recommend MRI abdomen pre and post intravenous contrast follow-up
== END | disposition home or self-care (01) ==
PROVIDERS: PCP Internal Medicine; Referring Provider Internal Medicine Hematology & Oncology; Visit Provider Internal Medicine Hematology & Oncology
DX: I27.21 Secondary pulmonary arterial hypertension (principal); R91.8 Other nonspecific abnormal finding of lung field; N28.89 Other specified disorders of kidney and ureter; C64.1 Malignant neoplasm of right kidney, except renal pelvis; C78.01 Secondary malignant neoplasm of right lung
CPT/HCPCS: 71260; A4649; Q9967

== ENCOUNTER 2024-10-23 10:19 | Outpatient (RCR) | payer MEDICARE, MEDICAID, SELFPAY ==
--- NOTE | 2024-10-23 11:14 | CTCFLWUP_ITS ---
Patient: GRICELDA MARQUES : 1960 Page 10 of 12 FOLLOW UP NOTE DATE OF SERVICE: 10/23/2024 NAME: GRICELDA MARQUES ACCOUNT: [id number] : 1960 AGE: 64 INTERVAL HISTORY: Shelli, a patient with stage 4 kidney cancer, presented for follow-up after multiple hospitalizations. History included failed treatments with Sutent, pembrolizumab, Inlyta, and cabozantinib due to intolerance. 05/16/24 brain MRI stable . Netera test was positive at 1.90. The patient is on dialysis with a Pritesh port. Treatment plan included initiating nivolumab/ipilimumab immunotherapy, as patient is very reluctant restarting low-dose Inlyta, continuing brain imaging, and using the existing dialysis port for treatment administration. Patient never started treatment as was never called by the staff to schedule. Patient advised to get scheduled today. ONCOLOGY HISTORY: DIAGNOSIS: Malignant neoplasm of right kidney, except renal pelvis [ICD10] C64.1; Secondary malignant neoplasm of right lung [ICD10] C78.01 DATE OF DIAGNOSIS: 09/13/2018 STAGE/TNM: Stage IV TREATMENT HISTORY: Care?Plan Start?Date Cycle Day Intent KEYTRUDA?200 01/21/2020 1 21 Palliative Nivolumab?and?ipilumumab?1 08/12/2024 1 21 Palliative HISTORY OF PRESENT ILLNESS: Gricelda Marques is a 64-year-old ENG speaking female with history of diabetes since 1995, peripheral neuropathy as well as fibromyalgia has the following oncology history. July 2015: Patient had right radical nephrectomy, robotic inferior vena cava colectomy and right-sided retroperitoneal lymph node dissection. Pathology showed grade 2, clear cell renal cell carcinoma measuring 7.5 x 5 x 4 cm in size. Margins were uninvolved by invasive carcinoma. Lymphovascular invasion was not identified. It was staged as a pT3 disease. No regional lymph nodes were submitted in the pathology specimen. Renal artery, vein, ureter, perinephric resection margins and vena caval resection margins are free of tumor. 09/13/2018: CT scan of the chest with IV contrast did not show any mediastinal adenopathy or pulmonary parenchymal nodules. 03/13/2019: CT scan of the chest, abdomen and pelvis with IV contrast? 05/15/2019: CT-guided biopsy of the right lower lobe pulmonary nodule was performed. 07/03/2019: Repeat CT scan of the chest without contrast was performed. 07/03/2019: Patient had repeat CT-guided percutaneous biopsy of the right lower lobe pulmonary nodule. July 2019: Patient was started on Sutent by Dr. Aaron of [place]. 09/03/2019: PET CT scan? 09/05/2019: Echocardiogram?LVEF 60 to 65%. 10/09/2019: CT scan of the abdomen and pelvis with contrast compared to previous CT scan of the abdomen and pelvis done on 03/27/2018. 12/21/2019: PET CT scan? 12/31/2019: Sutent discontinued. 01/21/2020: Patient is started on Keytruda and axitinib. 02/10/2020?02/23/2020: Patient was admitted to [facility] in [place] for a perianal abscess which was surgically lanced. Ms. Marques took the last dose of axitinib on 02/09/2020. 04/18/2020: PET CT scan? 05/13/2020: Patient received second dose of Keytruda and restarted axitinib 5 mg p.o. twice daily. 09/25/2020: PET CT scan? 06/16/2021: CT scan of the chest abdomen and pelvis with IV contrast 06/17/2021: Patient received last dose of pembrolizumab. 07/22/2021: Ms. Marques was getting pembrolizumab as well as axitinib. Pembrolizumab discontinued due to diarrhea lasting for about 2 weeks. After discontinuing the pembrolizumab diarrhea resolved. Diarrhea was thought to be secondary to colitis caused by pembrolizumab. 11/15/2021: CT scan of the chest abdomen and pelvis with IV contrast? November 20, 2021: Ms. Marques discontinued axitinib due to persistent diarrhea. Her diarrhea has improved since then. 12/14/2021: Pembrolizumab restarted. 03/17/2022: CT scan of the chest abdomen and pelvis with IV contrast? 09/13/2022: CT scan of the chest abdomen and pelvis with IV contrast 01/23/2023: CT scan of the chest abdomen and pelvis with IV contrast 02/09/2023: The patient received last dose of pembrolizumab. Pembrolizumab was discontinued and Ms. Marques was started on cabozantinib. 04/04/2023: CT scan of the chest abdomen and pelvis with IV contrast 05/16/2023 cabozantinib was decreased from 60 mg p.o. daily to 40 mg p.o. daily due to hypotension, cracking of the skin of the hands and feet as well as sores in the mouth. 06/22/2023: Cabozantinib 40 mg p.o. daily stopped due to stomatitis as well as ulcers in the feet. 07/18/2023T scan of the chest abdomen pelvis with contrast 08/26/2023: Ms. Marques decided to discontinue cabozantinib due to ulcers in the feet. She was taking cabozantinib 40 mg p.o. daily for 2 weeks followed by 1 week rest which she decided not to continue any longer. 10/13/2023: MRI of the brain without IV contrast 11/02/2023: CT scan of the chest abdomen and pelvis with IV contrast? 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 allopurinol - 100 mg Daily 2. atorvastatin - 20 mg 1 tab Daily 3. Basaglar KwikPen - Twice a Day 4. carvedilol - 12.5 mg 1 tab Twice a Day 5. Cymbalta - 60 mg Daily 6. Lyrica - 100 mg 1 Capsule Every day before sleep 7. Novolog - 8. Ozempic - 0.25 mg or 0.5 mg(2 mg/1.5 mL) Weekly 9. Zofran - 4 mg 1 tab 2 tabs po twice a day prn nausea Medications Last Reconciled by Elizabeth Mcnulty MA on 10/23/2024 ALLERGIES: hydrocodone-acetaminophen; codeine sulfate REVIEW OF SYSTEMS: A complete 14-point review of systems was performed and is negative except as noted in interval history. PHYSICAL EXAMINATION: VITAL SIGNS: Temperature?98.2, B/P?144/66, Oxygen?Saturation?98% GENERAL APPEARANCE: Appears well, in no apparent distress, appropriately interactive. HEENT: Normocephalic, no temporal wasting, normal conjunctiva, no scleral icterus, normal hearing, lips without lesions, neck normal range of motion. CARDIOVASCULAR: Not assessed. PULMONARY: Normal respiratory effort, no respiratory distress or use of accessory muscles, speaking in full sentences, no tachypnea. EXTREMITIES: No pedal edema or cyanosis. SKIN: Normal skin appearance. NEUROLOGIC: Alert and oriented x4. PSHYCHIATRIC: Appropriate affect, mood normal, behavior normal, intact thought and speech. LABORATORY DATA: I have personally reviewed and interpreted each of the patient?s relevant lab tests, abnormal findings are below: Date 07/25/24 10/10/24 ??WHITE?BLOOD?COUNT?(Thou/mm3) 6.3 4.9 ??RED?BLOOD?COUNT?(Miln/mm3) 3.76?L 2.61?L ??HEMOGLOBIN?(gm/dl) 9.7?L 6.9?LL ??HEMATOCRIT?(%) 32.1?L 23.2?L ??PLATELET?COUNT?(Thou/mm3) 173 181 ??NEUTROPHILS?%,?AUTO?(%) 63 56 ??LYMPH?%,?AUTO?(%) 25 31 ??NEUTROPHILS,?AUTO?(Thou/mm3) 4.0 2.7 ??GLUCOSE,RANDOM?(mg/dL) 130?H 129?H ??BLOOD?UREA?NITROGEN?(mg/dL) 43?H 37?H ??CREATININE?(mg/dL) 3.10?H 8.20?HH ??SODIUM?(mmol/L) 146?H 144 ??POTASSIUM?(mmol/L) 5.1 4.7 ??CHLORIDE?(mmol/L) 114?H 100 ??CrCl?(CandG)?(ml/min) 23.76 8.51 ??AST/SGOT?(Unit/L) 13 21 ??ALT/SGPT?(Unit/L) 7?L 7?L ??ALKALINE?PHOSPHATASE?(Unit/L) 92 92 ??BILIRUBIN,?TOTAL?(mg/dL) 0.3 0.2?L ??PROTEIN?TOTAL?(gm/dl) 7.0 7.3 ??ALBUMIN,?SERUM?(gm/dl) 4.3 4.4 ??GLOBULIN?(gm/dl) 2.7 2.9 ??ALBUMIN/GLOBULIN?RATIO 1.6 1.5 ??CALCIUM,?SERUM?(mg/dL) 9.3 9.6 ??CALCIUM?SERUM?(CORRECTED)?(mg/dL) 9.3 9.6 ASSESSMENT/PLAN: 1. Metastatic clear cell carcinoma of the right kidney with biopsy-proven pulmonary metastatic disease. Progressed on Sutent and Keytruda CT scan of the chest abdomen and pelvis IV contrast (11/02/2023) is negative for metastatic disease. Cabozantinib discontinued on 09/03/2023 due to ulcers in the feet. 04/09/2024 MRI of the brain reviewed and shows 6 mm lesion 05/16/[address] scan reviewed and shows subcentimeter pulmonary nodules compared to CT chest 11/02/2023 Patient had walter which showed persistant tumor Patient agreed to starting therapy with nivo/ipi immunotherapy The patient have labs of cancer we will restart treatment with the Nivo and ipi CT scan showed progression Patient is on dialysis Chest x ray showed cardiomegaly Echo showed stable EF 2. Diabetes with peripheral neuropathy as well as fibromyalgia-followed by PCP. ORDERS: Order # Description [id number] 2 Units PRBC + 1 Unit PRBC [id number] Comprehensive Metabolic Panel - 12 + CBC with Auto Diff [id number] Thyroid Stimulating Hormone + Assay Triiodothyronine (T3) + Cortisol Free [id number] Follow Up 4 Week RETURN TO CLINIC: I reviewed the diagnosis, prognosis, and recommended treatment/procedure options with the patient (and/or their legal sales representative education courses), including the potential benefits, risks, side effects and alternative therapies. We also discussed the option of no treatment and the possibility of clinical trial participation, if applicable. All questions were addressed, and they demonstrated understanding. They provided informed consent to proceed with the proposed plan of care. BILLING AND COMPLIANCE: I reviewed external records from providers outside my specialty as summarized above. I spent a total of 50 minutes on this patient?s care on the day of their visit excluding time spent related to any billed procedures. This time includes time spent with the patient as well as time spent documenting in the medical record, reviewing patients records and tests, obtaining history, placing orders, communicating with other healthcare professionals, counseling the patient, family or caregiver, and/or care coordination for the diagnoses above. Electronically Signed by: Bret Main MD T: 11:11 AM CC: PCP: Anyi Lynch Referring: Anyi Lynch This document was completed utilizing speech recognition software. Grammatical errors, random word insertions, pronoun errors, and incomplete sentences are an occasional consequence of this system due to software limitations, ambient noise, and hardware issues. Any formal questions or concerns about the content, text or information contained within the body of this dictation should be directly addressed to the provider for clarification.
== END 2024-11-05 23:59 | disposition home or self-care (01) ==
LOC: SCTC 10:19
PROVIDERS: PCP Internal Medicine; Referring Provider Internal Medicine; Visit Provider Internal Medicine Hematology & Oncology
DX: C64.1 Malignant neoplasm of right kidney, except renal pelvis (principal); C78.01 Secondary malignant neoplasm of right lung; G93.89 Other specified disorders of brain; E11.42 Type 2 diabetes mellitus with diabetic polyneuropathy; M79.7 Fibromyalgia; Z79.4 Long term (current) use of insulin; Z79.85 Long-term (current) use of injectable non-insulin antidiabetic drugs; I51.7 Cardiomegaly
CPT/HCPCS: 99212; G0463

== ENCOUNTER → 2024-12-23 | Outpatient (CLI) | payer MEDICARE, MEDICAID, SELFPAY ==
[2024-12-23 11:23] LABS: Basophils # (Auto) 0.0 Thou/mm3 (0.0-0.2); Basophils % (Auto) 1 % (0-2.5); Eosinophils # (Auto) 0.2 Thou/mm3 (0.0-0.5); Eosinophils % (Auto) 5 % (0-10); Hematocrit 28.7 % (36.0-46.0); Immature Granulocytes Auto 0.01 Thou/mm3 (0.00-0.00); Lymphocytes # (Auto) 1.2 Thou/mm3 (1.0-4.8); Lymphocytes % (Auto) 30 % (10-50); Mean Corpuscular HGB Conc 30.0 g/dl (31.0-37.0); Mean Corpuscular Hemoglobin 27.7 pg (25.0-35.0); Mean Corpuscular Volume 93 fL (80-100); Monocytes # (Auto) 0.4 Thou/mm3 (0.0-0.8); Monocytes % (Auto) 10 % (0-12); Neutrophils # (Auto) 2.2 Thou/mm3 (1.8-7.7); Neutrophils % (Auto) 54 % (37-80); Nucleated Red Blood Cell # 0.00 Thou/mm3 (0.00-0.00); Nucleated Red Blood Cell % 0 /100 WBC (0); Platelet Count 179 Thou/mm3 (140-440); RDW Standard Deviation 53.1 fL (36.4-46.3); Red Blood Count 3.10 Miln/mm3 (4.00-5.20); White Blood Count 4.1 Thou/mm3 (3.6-11.0)
[2024-12-23 11:27] LABS: Hemoglobin 8.6 g/dL (12.0-16.0)
[2024-12-23 11:41] LABS: Alanine Aminotransferase 11 U/L (10-49); Albumin, Serum 4.1 gm/dL (3.4-4.8); Albumin/Globulin Ratio 1.3 (1.2-2.2); Alkaline Phosphatase 161 U/L (46-116); Anion Gap 11 (7-16); Aspartate Amino Transferase 32 U/L (0-34); BUN/Creatinine Ratio 3 Ratio (12-20); Bilirubin,Total 0.3 mg/dL (0.3-1.2); Blood Urea Nitrogen 19 mg/dL (9-23); Calcium 9.8 mg/dL (8.3-10.6); Calcium (Corrected) 9.8 mg/dL (8.5-10.1); Carbon Dioxide 29.4 mMol/L (20.0-31.0); Chloride 98 mMol/L (98-107); Creatinine (Component) 6.0 mg/dL (0.6-1.3); Globulin 3.1 gm/dL (2.3-3.5); Glucose 241 mg/dL (74-106); Osmolality,Calculated 285 (275-295); Potassium 4.5 mMol/L (3.4-5.1); Sodium 138 mMol/L (136-145); Total Protein 7.2 gm/dL (5.7-8.2); eGFR 7 See Note
== END | disposition home or self-care (01) ==
LOC: SCTO 09:39
PROVIDERS: PCP Internal Medicine; Referring Provider Internal Medicine Hematology & Oncology; Visit Provider Internal Medicine Hematology & Oncology
DX: C64.1 Malignant neoplasm of right kidney, except renal pelvis (principal); C78.01 Secondary malignant neoplasm of right lung
CPT/HCPCS: 36415; 80053; 85025

== ENCOUNTER 2024-12-25 08:51 | Outpatient (RCR) | payer MEDICARE, MEDICAID, SELFPAY ==
--- NOTE | 2024-12-19 06:12 | CTCFLWUP_ITS ---
Patient: GRICELDA MARQUES : 1960 Page 2 of 3 FOLLOW UP NOTE DATE OF SERVICE: 12/18/2024 NAME: GRICELDA MARQUES ACCOUNT: [id number] : 1960 AGE: 64 INTERVAL HISTORY: Mariel Marques, a patient with stage 4 kidney cancer, presented for follow-up since starting Nivo and ipilimumab. History included failed treatments with Sutent, pembrolizumab, Inlyta, and cabozantinib due to intolerance. 05/16/24 brain MRI stable . Netera test was positive at 1.90. The patient is on dialysis with a Pritesh port. Treatment plan included initiating nivolumab/ipilimumab immunotherapy, as patient is very reluctant restarting low-dose Inlyta, continuing brain imaging, and using the existing dialysis port for treatment administration. Patient has received treatment and no side effects. Patient has received 2 cycles of Nivo and epi. Patient is due for her naterra testing and will be seen back in clinic after the results. ONCOLOGY HISTORY:?[facility] Oncology Hx? DIAGNOSIS: Malignant neoplasm of right kidney, except renal pelvis [ICD10] C64.1; Secondary malignant neoplasm of right lung [ICD10] C78.01 DATE OF DIAGNOSIS: 09/13/2018 STAGE/TNM: Stage IV TREATMENT HISTORY: Care?Plan Start?Date Cycle Day Intent KEYTRUDA?200 01/21/2020 1 21 Palliative Nivolumab?and?ipilumumab?1 11/06/2024 1 21 Palliative HISTORY OF PRESENT ILLNESS: Gricelda Marques is a 64-year-old ENG speaking female with history of diabetes since 1995, peripheral neuropathy as well as fibromyalgia has the following oncology history. July 2015: Patient had right radical nephrectomy, robotic inferior vena cava colectomy and right-sided retroperitoneal lymph node dissection. Pathology showed grade 2, clear cell renal cell carcinoma measuring 7.5 x 5 x 4 cm in size. Margins were uninvolved by invasive carcinoma. Lymphovascular invasion was not identified. It was staged as a pT3 disease. No regional lymph nodes were submitted in the pathology specimen. Renal artery, vein, ureter, perinephric resection margins and vena caval resection margins are free of tumor. 09/13/2018: CT scan of the chest with IV contrast did not show any mediastinal adenopathy or pulmonary parenchymal nodules. 03/13/2019: CT scan of the chest, abdomen and pelvis with IV contrast? 05/15/2019: CT-guided biopsy of the right lower lobe pulmonary nodule was performed. 07/03/2019: Repeat CT scan of the chest without contrast was performed. 07/03/2019: Patient had repeat CT-guided percutaneous biopsy of the right lower lobe pulmonary nodule. July 2019: Patient was started on Sutent by Dr. Aaron of [place]. 09/03/2019: PET CT scan? 09/05/2019: Echocardiogram?LVEF 60 to 65%. 10/09/2019: CT scan of the abdomen and pelvis with contrast compared to previous CT scan of the abdomen and pelvis done on 03/27/2018. 12/21/2019: PET CT scan? 12/31/2019: Sutent discontinued. 01/21/2020: Patient is started on Keytruda and axitinib. 02/10/2020?02/23/2020: Patient was admitted to [facility] in [place] for a perianal abscess which was surgically lanced. Ms. Marques took the last dose of axitinib on 02/09/2020. 04/18/2020: PET CT scan? 05/13/2020: Patient received second dose of Keytruda and restarted axitinib 5 mg p.o. twice daily. 09/25/2020: PET CT scan? 06/16/2021: CT scan of the chest abdomen and pelvis with IV contrast 06/17/2021: Patient received last dose of pembrolizumab. 07/22/2021: Ms. Marques was getting pembrolizumab as well as axitinib. Pembrolizumab discontinued due to diarrhea lasting for about 2 weeks. After discontinuing the pembrolizumab diarrhea resolved. Diarrhea was thought to be secondary to colitis caused by pembrolizumab. 11/15/2021: CT scan of the chest abdomen and pelvis with IV contrast? November 20, 2021: Ms. Marques discontinued axitinib due to persistent diarrhea. Her diarrhea has improved since then. 12/14/2021: Pembrolizumab restarted. 03/17/2022: CT scan of the chest abdomen and pelvis with IV contrast? 09/13/2022: CT scan of the chest abdomen and pelvis with IV contrast 01/23/2023: CT scan of the chest abdomen and pelvis with IV contrast 02/09/2023: The patient received last dose of pembrolizumab. Pembrolizumab was discontinued and Ms. Marques was started on cabozantinib. 04/04/2023: CT scan of the chest abdomen and pelvis with IV contrast 05/16/2023 cabozantinib was decreased from 60 mg p.o. daily to 40 mg p.o. daily due to hypotension, cracking of the skin of the hands and feet as well as sores in the mouth. 06/22/2023: Cabozantinib 40 mg p.o. daily stopped due to stomatitis as well as ulcers in the feet. 07/18/2023T scan of the chest abdomen pelvis with contrast 08/26/2023: Ms. Marques decided to discontinue cabozantinib due to ulcers in the feet. She was taking cabozantinib 40 mg p.o. daily for 2 weeks followed by 1 week rest which she decided not to continue any longer. 10/13/2023: MRI of the brain without IV contrast 11/02/2023: CT scan of the chest abdomen and pelvis with IV contrast? OTHER MEDICAL HISTORY/CONDITIONS: FAMILY HISTORY: ?Clone Family Hx? 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 allopurinol - 100 mg Daily 2. atorvastatin - 20 mg 1 tab Daily 3. Basaglar KwikPen - Twice a Day 4. carvedilol - 12.5 mg 1 tab Twice a Day 5. Colace 2-In-1 - 8.6-50 mg 1 tab as needed 6. Compazine - 5 mg 1 tab as needed 7. Cymbalta - 60 mg Daily 8. Flonase Allergy Relief - 50 mcg/actuation 2 spray Daily 9. Lyrica - 100 mg 1 Capsule Every day before sleep 10. Novolog - 11. ondansetron - 8 mg 1 tab as needed 12. Ozempic - 0.25 mg or 0.5 mg(2 mg/1.5 mL) Weekly 13. Zofran - 4 mg 1 tab 2 tabs po twice a day prn nausea?Palabra Meds? Medications Last Reconciled by Elizabeth Siu MD on 12/18/2024 ALLERGIES: hydrocodone-acetaminophen; codeine sulfate REVIEW OF SYSTEMS: A complete 14-point review of systems was performed and is negative except as noted in interval history. PHYSICAL EXAMINATION:?[facility] PE? VITAL SIGNS: Temperature?98.3, B/P?144/67, Oxygen?Saturation?94% Weight?228?lbs (Change?since?12/04/24:?-0.4?lbs) PAIN: 0 - No pain GENERAL APPEARANCE: Appears well, in no apparent distress, appropriately interactive. HEENT: Normocephalic, no temporal wasting, normal conjunctiva, no scleral icterus, normal hearing, lips without lesions, neck normal range of motion. CARDIOVASCULAR: Not assessed. PULMONARY: Normal respiratory effort, no respiratory distress or use of accessory muscles, speaking in full sentences, no tachypnea. EXTREMITIES: No pedal edema or cyanosis. SKIN: Normal skin appearance. NEUROLOGIC: Alert and oriented x4. PSHYCHIATRIC: Appropriate affect, mood normal, behavior normal, intact thought and speech. LABORATORY DATA: I have personally reviewed and interpreted each of the patient?s relevant lab tests, abnormal findings are below: Date 11/06/24 12/04/24 ??WHITE?BLOOD?COUNT?(Thou/mm3) 4.6 5.2 ??RED?BLOOD?COUNT?(Miln/mm3) 2.89?L 2.68?L ??HEMOGLOBIN?(gm/dl) 8.0?L 7.6?L ??HEMATOCRIT?(%) 26.4?L 24.5?L ??PLATELET?COUNT?(Thou/mm3) 178 184 ??NEUTROPHILS?%,?AUTO?(%) 63 60 ??LYMPH?%,?AUTO?(%) 25 28 ??NEUTROPHILS,?AUTO?(Thou/mm3) 2.9 3.1 ??GLUCOSE,RANDOM?(mg/dL) 160?H 161?H ??BLOOD?UREA?NITROGEN?(mg/dL) 24?H 12 ??CREATININE?(mg/dL) 6.40?HH 5.60?HH ??SODIUM?(mmol/L) 137 139 ??POTASSIUM?(mmol/L) 4.2 3.7 ??CHLORIDE?(mmol/L) 95?L 98 ??CrCl?(CandG)?(ml/min) 10.73 12.15 ??AST/SGOT?(Unit/L) 42?H 43?H ??ALT/SGPT?(Unit/L) 21 <?7?L ??ALKALINE?PHOSPHATASE?(Unit/L) 237?H 135?H ??BILIRUBIN,?TOTAL?(mg/dL) 0.2?L 0.3 ??PROTEIN?TOTAL?(gm/dl) 7.9 6.9 ??ALBUMIN,?SERUM?(gm/dl) 4.6 4.3 ??GLOBULIN?(gm/dl) 3.3 2.6 ??ALBUMIN/GLOBULIN?RATIO 1.4 1.7 ??CALCIUM,?SERUM?(mg/dL) 9.9 9.0 ??CALCIUM?SERUM?(CORRECTED)?(mg/dL) 9.9 9.0 ASSESSMENT/PLAN:?Ivanna Main Assessment/Plan? 1. Metastatic clear cell carcinoma of the right kidney with biopsy-proven pulmonary metastatic disease. Progressed on Sutent and Keytruda CT scan of the chest abdomen and pelvis IV contrast (11/02/2023) is negative for metastatic disease. Cabozantinib discontinued on 09/03/2023 due to ulcers in the feet. 04/09/2024 MRI of the brain reviewed and shows 6 mm lesion 05/16/[address] scan reviewed and shows subcentimeter pulmonary nodules compared to CT chest 11/02/2023 Patient had walter which showed persistant tumor Patient agreed to starting therapy with nivo/ipi immunotherapy The patient have labs of cancer we will restart treatment with the Nivo and ipi CT scan showed progression Patient is on dialysis Chest x ray showed cardiomegaly Echo showed stable EF 2. Diabetes with peripheral neuropathy as well as fibromyalgia-followed by PCP. Continue continue current therapy and follow-up with Anatera Patient is having lots of allergies and congestion in her nose This is likely side effect of immunotherapy as well as from allergies Will prescribe her Flonase to be used as nasal spray in both nostril at least once a day Patient advised to also take her vitamin D3 daily and follow-up with the nephrology Patient is constipated and advised to use Senokot on regular basis daily RTC with walter results and imaging once nivolumab and ipilimumab is completed RETURN TO CLINIC: I reviewed the diagnosis, prognosis, and recommended treatment/procedure options with the patient (and/or their legal telecommunications sales representative), including the potential benefits, risks, side effects and alternative therapies. We also discussed the option of no treatment and the possibility of clinical trial participation, if applicable. All questions were addressed, and they demonstrated understanding. They provided informed consent to proceed with the proposed plan of care. BILLING AND COMPLIANCE: I reviewed external records from providers outside my specialty as summarized above. I spent a total of 50 minutes on this patient?s care on the day of their visit excluding time spent related to any billed procedures. This time includes time spent with the patient as well as time spent documenting in the medical record, reviewing patients records and tests, obtaining history, placing orders, communicating with other healthcare professionals, counseling the patient, family or caregiver, and/or care coordination for the diagnoses above. Electronically Signed by: Bret Main MD T: 6:09 AM CC: PCP: Anyi Lynch Referring: Anyi Lynch This document was completed utilizing speech recognition software. Grammatical errors, random word insertions, pronoun errors, and incomplete sentences are an occasional consequence of this system due to software limitations, ambient noise, and hardware issues. Any formal questions or concerns about the content, text or information contained within the body of this dictation should be directly addressed to the provider for clarification.
[2024-12-25 10:09] LABS: Free T4 (Free Thyroxine) 1.52 ng/dL (0.89-1.76); Thyroid Stimulating Hormone 4.23 uIU/mL (0.55-4.78)
== END 2025-01-05 23:59 | disposition home or self-care (01) ==
LOC: SCTC 08:51
PROVIDERS: PCP Internal Medicine; Referring Provider Internal Medicine; Visit Provider Internal Medicine Hematology & Oncology
DX: Z51.11 Encounter for antineoplastic chemotherapy (principal); C64.1 Malignant neoplasm of right kidney, except renal pelvis; C78.01 Secondary malignant neoplasm of right lung
CPT/HCPCS: 84439; 84443; 96367; 96375; 96413; 96417; 99212; J2405; J3490; J7040; J7050; J9228; J9299; A9270; G0463

== ENCOUNTER 2025-01-15 08:51 | Outpatient (RCR) | payer MEDICARE, MEDICAID, SELFPAY ==
[2025-01-15 09:54] LABS: Basophils # (Auto) 0.0 Thou/mm3 (0.0-0.2); Basophils % (Auto) 1 % (0-2.5); Eosinophils # (Auto) 0.2 Thou/mm3 (0.0-0.5); Eosinophils % (Auto) 6 % (0-10); Hematocrit 31.3 % (36.0-46.0); Hemoglobin 9.4 g/dL (12.0-16.0); Immature Granulocytes Auto 0.00 Thou/mm3 (0.00-0.00); Lymphocytes # (Auto) 1.2 Thou/mm3 (1.0-4.8); Lymphocytes % (Auto) 32 % (10-50); Mean Corpuscular HGB Conc 30.0 g/dl (31.0-37.0); Mean Corpuscular Hemoglobin 27.6 pg (25.0-35.0); Mean Corpuscular Volume 92 fL (80-100); Monocytes # (Auto) 0.4 Thou/mm3 (0.0-0.8); Monocytes % (Auto) 10 % (0-12); Neutrophils # (Auto) 1.9 Thou/mm3 (1.8-7.7); Neutrophils % (Auto) 53 % (37-80); Nucleated Red Blood Cell # 0.00 Thou/mm3 (0.00-0.00); Nucleated Red Blood Cell % 0 /100 WBC (0); Platelet Count 172 Thou/mm3 (140-440); RDW Standard Deviation 56.4 fL (36.4-46.3); Red Blood Count 3.41 Miln/mm3 (4.00-5.20); White Blood Count 3.6 Thou/mm3 (3.6-11.0)
[2025-01-15 10:25] LABS: Alanine Aminotransferase 13 U/L (10-49); Albumin, Serum 4.1 gm/dL (3.4-4.8); Albumin/Globulin Ratio 1.2 (1.2-2.2); Alkaline Phosphatase 252 U/L (46-116); Anion Gap 13 (7-16); Aspartate Amino Transferase 50 U/L (0-34); BUN/Creatinine Ratio 2 Ratio (12-20); Bilirubin,Total 0.4 mg/dL (0.3-1.2); Blood Urea Nitrogen 12 mg/dL (9-23); Calcium 9.2 mg/dL (8.3-10.6); Calcium (Corrected) 9.2 mg/dL (8.5-10.1); Carbon Dioxide 28.1 mMol/L (20.0-31.0); Chloride 98 mMol/L (98-107); Creatinine (Component) 4.9 mg/dL (0.6-1.3); Free T4 (Free Thyroxine) 1.40 ng/dL (0.89-1.76); Globulin 3.4 gm/dL (2.3-3.5); Glucose 132 mg/dL (74-106); Osmolality,Calculated 279 (275-295); Potassium 3.2 mMol/L (3.4-5.1); Sodium 139 mMol/L (136-145); Thyroid Stimulating Hormone 3.79 uIU/mL (0.55-4.78); Total Protein 7.5 gm/dL (5.7-8.2); eGFR 9 See Note
== END 2025-02-05 23:59 | disposition home or self-care (01) ==
LOC: SCTC 08:51
PROVIDERS: PCP Internal Medicine; Referring Provider Internal Medicine Hematology & Oncology; Visit Provider Internal Medicine Hematology & Oncology
DX: Z51.12 Encounter for antineoplastic immunotherapy (principal); C64.1 Malignant neoplasm of right kidney, except renal pelvis; C78.02 Secondary malignant neoplasm of left lung; C78.01 Secondary malignant neoplasm of right lung
CPT/HCPCS: 80053; 84439; 84443; 85025; 86850; 86900; 86901; 96367; 96375; 96413; 96417; J2405; J3490; J7050; J9228; J9299; A9270